=== PATIENT | female | born 1950 | race Caucasian/White ===

== ENCOUNTER 2018-01-05 12:05 | Emergency (ER) | payer MEDICARE, BC ==
--- NOTE | 2018-01-05 12:35 | ED ---
General Adult HPI - General Chief complaint: Vaginal Bleeding Stated complaint: Vaginal Bleeding Time Seen by Provider: 01/05/18 12:22 Source: patient, RN notes reviewed, old records reviewed Mode of arrival: ambulatory Limitations: no limitations - History of Present Illness Initial comments: Patient is a 59-year-old female chief complaint of vaginal bleeding last week. She reports it was very light. It occurred for 5-6 days. She states it stopped at this time. She talked her friends and they were concerned that she may have cancer so she came here for further further evaluation. She does currently live in [place] but she is here on summer vacation. She was here during the summer and returns to [place] during the winter times. She reports that he went through menopause approximately 20 years ago. She states that she' s had no abnormal bleeding since that time. 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 She called an OB in this area and was unable to follow-up. Patient states that she's had no pain. Denies any change in urination or bowel habits. Surgical history includes cholecystectomy.Patient denies any recent fever, chills, shortness of breath, chest pain, back pain, abdominal pain, nausea vomiting, numbness or tingling, dysuria or hematuria, constipation or diarrhea, headaches or visual changes, or any other current symptoms - Related Data Home Medications Medication Instructions Recorded Confirmed Carboxymethylcellulose Sodium 1 - 2 drops BOTH EYES DAILY PRN 01/05/18 01/05/18 [Refresh Tears] Cholecalciferol [Vitamin D3] 1,000 unit PO DAILY 01/05/18 01/05/18 Cholestyramine/Aspartame [Questran 4 gm PO DIRECTED 01/05/18 01/05/18 Light Powder] Cyanocobalamin (Vitamin B-12) 1,000 mcg PO DAILY 01/05/18 01/05/18 [Vitamin B-12] Dorzolamide/Timolol/Pf [Cosopt Pf 1 applicator LEFT EYE HS 01/05/18 01/05/18 2%/5% Ophth Droperette] Escitalopram Oxalate [Lexapro] 10 mg PO DAILY 01/05/18 01/05/18 Levothyroxine Sodium [Synthroid] 88 mcg PO DAILY 01/05/18 01/05/18 Losartan [Cozaar] 25 mg PO DAILY 01/05/18 01/05/18 Meloxicam [Mobic] 15 mg PO DAILY 01/05/18 01/05/18 Multivitamins, Thera [Multivitamin 1 tab PO DAILY 01/05/18 01/05/18 (formulary)] Travoprost [Travatan Z 0.004%] 1 drop LEFT EYE HS 01/05/18 01/05/18 Allergies Allergy/AdvReac Type Severity Reaction Status Date / Time prema Allergy Severe Rash/Hives Verified 01/05/18 12:54 poison adeel extract Allergy Severe Rash/Hives Verified 01/05/18 12:54 Review of Systems ROS Statement: Those systems with pertinent positive or pertinent negative responses have been documented in the HPI. ROS Other: All systems not noted in ROS Statement are negative. Past Medical History Past Medical History: Atrial Fibrillation, Thyroid Disorder Additional Past Medical History / Comment(s): glaucoma, detatched retina, bowel obstructions History of Any Multi-Drug Resistant Organisms: None Reported Past Surgical History: Cholecystectomy Additional Past Surgical History / Comment(s): eye surgery, bowel resection, slpingo-oopherectomy Past Psychological History: No Psychological Hx Reported Smoking Status: Former smoker Past Alcohol Use History: Rare Past Drug Use History: None Reported General Exam - General Exam Comments Initial Comments: 59-year-old female. Alert and oriented. No significant distress. Limitations: no limitations General appearance: alert, in no apparent distress Head exam: Present: atraumatic, normocephalic, normal inspection Eye exam: Present: normal appearance, PERRL, EOMI. Absent: scleral icterus, conjunctival injection, periorbital swelling ENT exam: Present: normal exam, mucous membranes moist Neck exam: Present: normal inspection. Absent: tenderness, meningismus, lymphadenopathy Respiratory exam: Present: normal lung sounds bilaterally. Absent: respiratory distress, wheezes, rales, rhonchi, stridor Cardiovascular Exam: Present: regular rate, normal rhythm, normal heart sounds. Absent: systolic murmur, diastolic murmur, rubs, gallop, clicks GI/Abdominal exam: Present: soft, normal bowel sounds. Absent: distended, tenderness, guarding, rebound, rigid Speculum exam: Present: normal speculum exam. Absent: erythema, vaginal discharge, cervical discharge, vaginal bleeding By manual exam: Present: normal by manual exam. Absent: cervical motion tenderness, adnexal tenderness, adnexal mass, uterine enlargement, uterine tenderness Extremities exam: Present: normal inspection, full ROM, normal capillary refill. Absent: tenderness, pedal edema, joint swelling, calf tenderness Back exam: Present: normal inspection Neurological exam: Present: alert, oriented X3, CN II-XII intact Course Vital Signs 01/05/18 01/05/18 12:22 14:56 Temperature 97.2 F L 97.3 F L Pulse Rate 62 60 Respiratory 20 18 Rate Blood Pressure 149/74 133/69 O2 Sat by Pulse 97 95 Oximetry Medical Decision Making - Medical Decision Making 59-year-old female presents emergency Department with history of one week of postmenopausal vaginal bleeding. Reports it was very light bleeding. Was concerned possibility cancers. Patient is here on vacation from [place]. At this time pelvic exam shows no evidence of significant bleeding. No significant tenderness. Lab work was reviewed and unremarkable. UA is negative for infection. I did swab for sexually transmitted infections including gonorrhea and Trichomonas. Trichomonas is negative. Ultrasound was completed and show a thickened endometrium possibility pelvis. There is concern for needing a biopsy. Dr. Nicolas discussed case with Dr. Perez. Patient will follow-up with Dr. Perez the on-call GEOSPATIAL APPLICATIONS DEVELOPER. Discussed the importance of follow-up with concern for cancerous etiology. Patient agrees to treatment plan will comply. Return parameters were discussed. - Lab Data Result diagrams: 01/05/18 13:15 01/05/18 13:15 Lab Results 01/05/18 01/05/18 01/05/18 Range/Units 13:00 13:15 13:15 WBC 6.9 (3.8-10.6) k/uL RBC 4.71 (3.80-5.40) m/uL Hgb 14.6 (11.4-16.0) gm/dL Hct 42.8 (34.0-46.0) % MCV 90.9 (80.0-100.0) fL MCH 31.0 (25.0-35.0) pg MCHC 34.1 (31.0-37.0) g/dL RDW 13.7 (11.5-15.5) % Plt Count 224 (150-450) k/uL Neutrophils % 64 % Lymphocytes % 28 % Monocytes % 5 % Eosinophils % 1 % Basophils % 0 % Neutrophils # 4.4 (1.3-7.7) k/uL Lymphocytes # 1.9 (1.0-4.8) k/uL Monocytes # 0.3 (0-1.0) k/uL Eosinophils # 0.1 (0-0.7) k/uL Basophils # 0.0 (0-0.2) k/uL Sodium 139 (137-145) mmol/L Potassium 4.9 (3.5-5.1) mmol/L Chloride 104 (98-107) mmol/L Carbon Dioxide 25 (22-30) mmol/L Anion Gap 10 mmol/L BUN 14 (7-17) mg/dL Creatinine 0.55 (0.52-1.04) mg/dL Est GFR (CKD-EPI)AfAm >90 (>60 ml/min/1.73 sqM) Est GFR (CKD-EPI)NonAf >90 (>60 ml/min/1.73 sqM) Glucose 88 (74-99) mg/dL Calcium 9.4 (8.4-10.2) mg/dL Urine Color Yellow Urine Appearance Clear (Clear) Urine pH 7.0 (5.0-8.0) Ur Specific [place] 1.010 (1.001-1.035) Urine Protein Negative (Negative) Urine Glucose (UA) Negative (Negative) Urine Ketones Negative (Negative) Urine Blood Negative (Negative) Urine Nitrite Negative (Negative) Urine Bilirubin Negative (Negative) Urine Urobilinogen <2.0 (<2.0) mg/dL Ur Leukocyte Esterase Negative (Negative) Trichomonas Ag (Rapid) (Negative) 01/05/18 Range/Units 13:50 WBC (3.8-10.6) k/uL RBC (3.80-5.40) m/uL Hgb (11.4-16.0) gm/dL Hct (34.0-46.0) % MCV (80.0-100.0) fL MCH (25.0-35.0) pg MCHC (31.0-37.0) g/dL RDW (11.5-15.5) % Plt Count (150-450) k/uL Neutrophils % % Lymphocytes % % Monocytes % % Eosinophils % % Basophils % % Neutrophils # (1.3-7.7) k/uL Lymphocytes # (1.0-4.8) k/uL Monocytes # (0-1.0) k/uL Eosinophils # (0-0.7) k/uL Basophils # (0-0.2) k/uL Sodium (137-145) mmol/L Potassium (3.5-5.1) mmol/L Chloride (98-107) mmol/L Carbon Dioxide (22-30) mmol/L Anion Gap mmol/L BUN (7-17) mg/dL Creatinine (0.52-1.04) mg/dL Est GFR (CKD-EPI)AfAm (>60 ml/min/1.73 sqM) Est GFR (CKD-EPI)NonAf (>60 ml/min/1.73 sqM) Glucose (74-99) mg/dL Calcium (8.4-10.2) mg/dL Urine Color Urine Appearance (Clear) Urine pH (5.0-8.0) Ur Specific [place] (1.001-1.035) Urine Protein (Negative) Urine Glucose (UA) (Negative) Urine Ketones (Negative) Urine Blood (Negative) Urine Nitrite (Negative) Urine Bilirubin (Negative) Urine Urobilinogen (<2.0) mg/dL Ur Leukocyte Esterase (Negative) Trichomonas Ag (Rapid) Negative (Negative) - Radiology Data Radiology results: report reviewed Suspicious heterogeneously thickened endometrium. Differential includes hyperplasia polyps but carcinoma cannot be excluded. Further anesthesia endometrial biopsies is advised. Disposition Clinical Impression: Post-menopausal bleeding Disposition: HOME SELF-CARE Condition: Good Instructions: Dysfunctional Uterine Bleeding (ED) Additional Instructions: Patient is advised to follow-up promptly with Dr. Perez. Return to the emergency department if any alarming signs or symptoms occur. Is patient prescribed a controlled substance at d/c from ED?: No When asked, does pt state using other controlled substances?: No If prescribed controlled substance>3 days was MAPS reviewed?: No If opioid is for acute pain is fill amount 7 days or less?: No If Rx opioid, was Start Talking consent form obtained?: No Referrals: Nonstaff,Physician [Primary Care Provider] - 1-2 days Marycruz Perez DO [Doctor of Osteopathic Medicine] - 1-2 days Time of Disposition: 14:53
[2018-01-05 13:18] LABS: Appearance,Urine Clear (Clear); Bilirubin,Urine Negative (Negative); Blood,Urine Negative (Negative); Color,Urine Yellow; Glucose,Urine (UA) Negative (Negative); Ketones,Urine Negative (Negative); Leukocyte Esterase,Urine Negative (Negative); Nitrite,Urine Negative (Negative); Protein,Urine Negative (Negative); Urobilinogen,Urine <2.0 mg/dL (<2.0)
[2018-01-05 13:42] LABS: Basophils % (A) 0 %; Eosinophils # (A) 0.1 k/uL (0-0.7); Eosinophils % (A) 1 %; HCT 42.8 % (34.0-46.0); HGB 14.6 gm/dL (11.4-16.0); Lymphocytes # (A) 1.9 k/uL (1.0-4.8); Lymphocytes % (A) 28 %; MCHC 34.1 g/dL (31.0-37.0); MCV 90.9 fL (80.0-100.0); Mean Platelet Volume 7.9; Monocytes # (A) 0.3 k/uL (0-1.0); Monocytes % (A) 5 %; Neutrophils # (A) 4.4 k/uL (1.3-7.7); Neutrophils % (A) 64 %; Platelet Count 224 k/uL (150-450); RBC 4.71 m/uL (3.80-5.40); RDW 13.7 % (11.5-15.5); WBC 6.9 k/uL (3.8-10.6)
[2018-01-05 13:47] LABS: Anion Gap 10 mmol/L; Blood Urea Nitrogen 14 mg/dL (7-17); Calcium 9.4 mg/dL (8.4-10.2); Carbon Dioxide 25 mmol/L (22-30); Chloride 104 mmol/L (98-107); Glucose 88 mg/dL (74-99); Potassium 4.9 mmol/L (3.5-5.1); Sodium 139 mmol/L (137-145)
--- NOTE | 2018-01-05 14:14 | US ---
EXAMINATION TYPE: US transvaginal DATE OF EXAM: 01/05/2018 COMPARISON: none CLINICAL HISTORY: post menopausal bleeding x 6 days last week. 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 Unilateral oophorectomy, patient unsure which side TECHNIQUE: Transvaginal (TV) and Transabdominal (TA) . Date of LMP: Post menopausal patient. EXAM MEASUREMENTS: Uterus: 6.4 x 4.0 x 4.3cm Endometrial Stripe: 1.5 cm Right Ovary: not visualized Left Ovary: not visualized 1. Uterus: Anteverted 2. Endometrium: thickened heterogenous endometrium 3. Right Ovary: Obscured by overlying bowel gas/atrophy 4. Left Ovary: Obscured by overlying bowel gas/atrophy 5. Bilateral Adnexa: wnl 6. Posterior cul-de-sac: wnl IMPRESSION: Suspicious heterogeneously thickened endometrium. Differential includes hyperplasia and p olyps but carcinoma needs to BE excluded. Further investigation with endometrial biopsy is advised.
[2018-01-05 15:10] VITALS: BP 133/69; PULSE 60; RESP 18; TEMP 97.3
[2018-01-06 16:10] LABS: N. gonorrhoeae,PCR Negative (Neg,Equiv); Neisseria Source Vagina
[2018-01-06 16:19] LABS: C. trachomatis,PCR Negative (Neg,Equiv); Chlamydia trachomatis Source Vagina
== END 2018-01-05 14:59 | disposition home or self-care (01) ==
LOC: EC 12:05
DX: N95.0 Postmenopausal bleeding (principal); I48.91 Unspecified atrial fibrillation; E07.9 Disorder of thyroid, unspecified; Z87.891 Personal history of nicotine dependence; Z90.49 Acquired absence of other specified parts of digestive tract; Z87.19 Personal history of other diseases of the digestive system; Z79.1 Long term (current) use of non-steroidal anti-inflammatories (NSAID); Z79.899 Other long term (current) drug therapy; Z91.018 Allergy to other foods; Z91.048 Other nonmedicinal substance allergy status
CPT/HCPCS: 36415; 76830; 80048; 81003; 85025; 87070; 87205; 87491; 87591; 87808; 99284

== ENCOUNTER → 2018-01-29 | Outpatient (CLI) | payer MEDICARE, BC ==
[2018-01-29 12:00] LABS: Basophils # (A) 0.1 k/uL (0-0.2); Basophils % (A) 1 %; Eosinophils # (A) 0.1 k/uL (0-0.7); Eosinophils % (A) 2 %; HCT 43.5 % (34.0-46.0); HGB 14.9 gm/dL (11.4-16.0); Lymphocytes # (A) 1.9 k/uL (1.0-4.8); Lymphocytes % (A) 28 %; MCH 31.7 pg (25.0-35.0); MCHC 34.3 g/dL (31.0-37.0); MCV 92.6 fL (80.0-100.0); Mean Platelet Volume 8.3; Monocytes # (A) 0.4 k/uL (0-1.0); Monocytes % (A) 6 %; Neutrophils # (A) 4.2 k/uL (1.3-7.7); Neutrophils % (A) 61 %; Platelet Count 244 k/uL (150-450); RBC 4.69 m/uL (3.80-5.40); WBC 6.9 k/uL (3.8-10.6)
== END | disposition home or self-care (01) ==
LOC: LABPAT 10:50
PROVIDERS: ATTEND Obstetrics & Gynecology
DX: Z01.812 Encounter for preprocedural laboratory examination (principal); Z01.818 Encounter for other preprocedural examination
CPT/HCPCS: 36415; 85025; 93005

== ENCOUNTER 2018-02-05 06:00 | Day surgery (SDC) | payer MEDICARE, BC ==
[2018-01-28 15:44] VITALS: BMI 29.1
--- NOTE | 2018-02-04 18:49 | P.HPOB ---
History of Present Illness H&P Date: 02/04/18 Chief Complaint: Postmenopausal bleeding, endometrial thickening This is a 67-year-old female 2 para 2 who presents for dilation and curettage with hysteroscopy secondary to postmenopausal bleeding. She states she went through menopause approximately 20 years ago and then began bleeding in mid December. The bleeding lasted 5-6 days and was light spotting. She denies any other symptoms. She states the bleeding started after she was started on meloxicam and had steroid injections in each shoulder approximately 2 months prior. Pelvic ultrasound showed a uterus measuring 6.4 x 4 x 4.3 cm with an endometrial thickness of 1.5 cm. Neither ovary was visualized. Obstetrical history: . History of 2 vaginal deliveries. Gynecologic history: No history of sexual transmitted diseases. Onset of menses was at age 13. Last menstrual period was at age 47. Social history: She is and retired. She lives in [place] but in [place] for the summer. Review of Systems Constitutional: Denies chills, Denies fever Eyes: denies blurred vision, denies pain Ears, nose, mouth and throat: Denies headache, Denies sore throat Cardiovascular: Denies chest pain, Denies shortness of breath Respiratory: Denies cough Gastrointestinal: Denies abdominal pain, Denies diarrhea, Denies nausea, Denies vomiting Genitourinary: Reports abnormal vaginal bleeding Menstruation: Reports postmenopausal Musculoskeletal: Reports low back pain, Reports myalgias Integumentary: Denies pruritus, Denies rash Neurological: Denies numbness, Denies weakness Psychiatric: Reports anxiety, Reports depression Past Medical History Past Medical History: Atrial Fibrillation, Eye Disorder, Thyroid Disorder Additional Past Medical History / Comment(s): glaucoma left eye, hx detatched retina left eye x5 and rt eye x 1, hx bowel obstructions x2 , hx migraines, frequent diarrhea History of Any Multi-Drug Resistant Organisms: None Reported Past Surgical History: Bowel Resection, Cholecystectomy, Tonsillectomy Additional Past Surgical History / Comment(s): eye surgeries, surgery for bowel obstruction x 2, one salpingo-oopherectomy(not sure which side), cardioversion, rt cataract Past Anesthesia/Blood Transfusion Reactions: Motion Sickness Additional Past Anesthesia/Blood Transfusion Reaction / Comment(s): takes longer to wake up Past Psychological History: Anxiety, Depression Smoking Status: Former smoker Past Alcohol Use History: Occasional Past Drug Use History: None Reported - Past Family History Father Family Medical History: Cancer Medications and Allergies Home Medications Medication Instructions Recorded Confirmed Type Carboxymethylcellulose Sodium 1 - 2 drops BOTH EYES DAILY PRN 01/05/18 01/28/18 History [Refresh Tears] Cholecalciferol [Vitamin D3] 1,000 unit PO DAILY 01/05/18 01/28/18 History Cyanocobalamin (Vitamin B-12) 1,000 mcg PO DAILY 01/05/18 01/28/18 History [Vitamin B-12] Dorzolamide/Timolol/Pf [Cosopt Pf 1 applicator LEFT EYE BID 01/05/18 01/28/18 History 2%/5% Ophth Droperette] Escitalopram Oxalate [Lexapro] 10 mg PO DAILY 01/05/18 01/28/18 History Levothyroxine Sodium [Synthroid] 88 mcg PO DAILY 01/05/18 01/28/18 History Losartan [Cozaar] 25 mg PO DAILY 01/05/18 01/28/18 History Meloxicam [Mobic] 15 mg PO DAILY 01/05/18 01/28/18 History Multivitamins, Thera [Multivitamin 1 tab PO DAILY 01/05/18 01/28/18 History (formulary)] Travoprost [Travatan Z 0.004%] 1 drop LEFT EYE HS 01/05/18 01/28/18 History Cholestyramine/Aspartame [Questran 1 applicate PO DAILY PRN 01/28/18 01/28/18 History Light Powder] Allergies Allergy/AdvReac Type Severity Reaction Status Date / Time prema Allergy Severe Rash/Hives Verified 01/28/18 15:25 poison adeel extract Allergy Severe Rash/Hives Verified 01/28/18 15:25 adhesive tape Allergy peels skin Verified 01/28/18 15:25 off/rash Exam Osteopathic Statement: *. No significant issues noted on an osteopathic structural exam other than those noted in the History and Physical/Consult. HEENT: Within normal limits Heart: Regular rate and rhythm Lungs: Clear to auscultation bilaterally Abdomen: Soft, nontender Pelvic exam: Uterus is mid position with grade 2 uterine prolapse, nontender. No adnexal masses or tenderness are noted. Grade 3 cystocele is noted. Extremities: Negative Homans Assessment and Plan (1) Endometrial thickening on ultrasound Status: Acute Code(s): R93.8 - ABNORMAL FINDINGS ON DIAGNOSTIC IMAGING OF BODY STRUCTURES SNOMED Code(s): 728154585 (2) Post-menopausal bleeding Status: Acute Code(s): N95.0 - POSTMENOPAUSAL BLEEDING SNOMED Code(s): 43665249 Plan: Proceed with dilation and curettage with hysteroscopy. I have discussed the risks, benefits, and alternative therapies for the above- mentioned procedure and for both sedation/anesthesia as well as necessary blood products administration, if indicated, as they pertain to this patient. The patient has indicated her understanding and acceptance of the risks and procedures discussed.
[~2018-02-05 06:00] MED LIST: LACTATED RINGERS 1,000 ML IV SCH; LIDOCAINE 1% 20 ML VIAL (10MG/ML) FOR IV START INTRADERMA PRN; Pre Op ABX Message 1 EACH MISC MISCELLANE ONE
[2018-02-05] MEDS ORDERED: DEXAMETHASONE SOD PHOS (MDV) 100 MG/10 ML VIAL IVP ONE (06:45)
[2018-02-05] MEDS ORDERED: ONDANSETRON 4 MG/2 ML VIAL IVP ONE (06:46)
[2018-02-05] MEDS ORDERED: KETOROLAC 30 MG/ML 1 ML VIAL ONE (07:29)
[2018-02-05] MEDS ORDERED: PROPOFOL 10 MG/ML 20 ML VIAL IV ONE (07:29)
[2018-02-05] MEDS ORDERED: MIDAZOLAM 2 MG/2 ML VIAL ONE (07:29)
[2018-02-05] MEDS ORDERED: SUCCINYLCHOLINE CHLORIDE 100 MG/5 ML SYR IV ONE (07:29)
[2018-02-05] MEDS ORDERED: ePHEDrine SULFATE/0.9% NACL/PF 50 MG/5 ML SYRINGE IV ONE (07:29)
[2018-02-05] MEDS ORDERED: LIDOCAINE 1% INJ 10MG/ML (20 ML MDV) ONE (07:29)
--- NOTE | 2018-02-05 08:02 | P.OP ---
Date of Procedure: 02/05/18 Preoperative Diagnosis: Postmenopausal bleeding Endometrial thickening Postoperative Diagnosis: Same Procedure(s) Performed: Attempted Dilation and curettage with hysteroscopy, uterine perforation Anesthesia: ALIYAH Surgeon: Marycruz Perez Estimated Blood Loss (ml): 5 Pathology: other (Endometrial curettings) Condition: stable Disposition: same day Indications for Procedure: This is a 67-year-old female 2 para 2 who presents for dilation and curettage with hysteroscopy secondary to postmenopausal bleeding. She states she went through menopause approximately 20 years ago and then began bleeding in mid December. The bleeding lasted 5-6 days and was light spotting. She denies any other symptoms. She states the bleeding started after she was started on meloxicam and had steroid injections in each shoulder approximately 2 months prior. Pelvic ultrasound showed a uterus measuring 6.4 x 4 x 4.3 cm with an endometrial thickness of 1.5 cm. Neither ovary was visualized. Operative Findings: Uterus is small, mid position, with no adnexal masses palpated. Grade 3 cystocele and grade 2 uterine prolapse are noted. Cervical os is extremely stenotic. Upon attempt at dilation, uterine perforation was noted. No active bleeding is noted. Description of Procedure: The patient is taken to the operating room where she is placed in the dorsal lithotomy position. She is prepped and draped in the normal sterile fashion. Bladder is drained with a catheter and then removed. Examination is performed under anesthesia. The above noted findings are made. Next a weighted speculum was placed in the patient's vagina and a right angle retractor was used to visualize the cervix. The anterior lip of the cervix is grasped with a single- tooth tenaculum. Cervical os is noted to be extremely stenotic. This is gently coaxed opened with a hemostat. Next the cervix is gently dilated with small Jung dilators. In attempts at dilation, it was apparent that there was a uterus perforation posteriorly. Hysteroscopy was performed and uterine perforation was confirmed and no active bleeding was noted. I am not sure that I will was actually in the endometrial canal due to the extreme stenosis noted in the cervix. After the hysteroscope is removed, I did perform a gentle curettage as far as I could get through the cervix and very scant tissue is obtained. This is sent to pathology and then the single-tooth tenaculum and speculum are removed. The catheter is placed in the bladder one further time to make sure urine is clear and it is. Catheter is then removed and all instances are removed from the patient. All sponge and needle counts are correct. Patient will be taken to recovery room in stable condition.
[2018-02-05 08:21] VITALS: TEMP 97
[2018-02-05 08:30] VITALS: RESP 16
[2018-02-05 09:45] VITALS: BP 137/79; PULSE 63
== END 2018-02-05 10:02 | disposition home or self-care (01) ==
LOC: OR 06:00
PROVIDERS: ATTEND Obstetrics & Gynecology
DX: N95.0 Postmenopausal bleeding (principal); R93.8 Abnormal findings on diagnostic imaging of other specified body structures; I48.91 Unspecified atrial fibrillation; E07.9 Disorder of thyroid, unspecified; H40.9 Unspecified glaucoma; F41.9 Anxiety disorder, unspecified; I48.0 Paroxysmal atrial fibrillation; F32.9 Major depressive disorder, single episode, unspecified; Z87.891 Personal history of nicotine dependence; Z79.890 Hormone replacement therapy; Z79.1 Long term (current) use of non-steroidal anti-inflammatories (NSAID); Z79.899 Other long term (current) drug therapy; Z91.018 Allergy to other foods; Z91.09 Other allergy status, other than to drugs and biological substances; S37.69XA Other injury of uterus, initial encounter
CPT/HCPCS: 88305; 58558; J2250; J2405; J2001; J1885; J1100; J0330; J2704